=== PATIENT | female | born 1975 | race Caucasian/White ===

== ENCOUNTER 2021-06-08 12:15 | Outpatient (CLI) | payer OTHER, SELFPAY ==
--- NOTE | ~2021-06-08 | XR_ITS ---
EXAMINATION: XR chest 2V DATE: 06/08/2021 12:34 INDICATION: Left-sided chest pain TECHNIQUE: PA and lateral views of the chest are obtained. COMPARISON: None available FINDINGS: The lungs are free of acute opacities. There is no pleural effusion or pneumothorax. The ca rdiomediastinal silhouette is normal. The visualized bones and soft tissues are unremarkable. IMPRESSION: 1. No acute cardiopulmonary abnormality. Reviewed, dictated and finalized at location B.
== END 2021-06-08 12:16 | disposition home or self-care (01) ==
PROVIDERS: PCP Internal Medicine; Visit Provider Nurse Practitioner
DX: R07.89 Other chest pain (principal)
CPT/HCPCS: 71046

== ENCOUNTER 2025-04-25 00:41 | Day surgery (SDC) | payer OTHER, SELFPAY ==
--- OUTSIDE RECORDS SUMMARY | 2024-01-01 12:30 | XMS_ITS ---
Author Organization [facility] [place] ([address]) Address [address] [place] [address] Care Team Providers Care End Worker Name Role Phone Gabby Wilson Primary Care Provider Dr. 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 Botox Only (non-migraine). 2. Jaw Dystonia. * Medical History: Objective: * Vitals: Assessment: * Assessment: 1. I diopathic orofacial dystonia - G24.4 Plan: * Treatment: * Procedure Codes: 6 4615 CHEMODENERV MUSC MIGRAINE, J0585 BOTULINUM TOXIN TYPE A PER UNIT, J0585 BOTULINUM TOXIN TYPE A PER UNIT, Modifiers: JW * Follow Up: 3 Months (Reason: Toxin injection) * Billing Information: * Visit Code: * Procedure Codes: 57593 CHEMODENERV MUSC MIGRAINE. J0585 BOTULINUM TOXIN TYPE A PER UNIT. J0585 BOTULINUM TOXIN TYPE A PER UNIT. Modifiers: JW * Electronic signature of Dr. Arsenio Sutherland MD on 04/25/2025 at 12:44 AM CDT Sign off status: Pending * Provider: Erick Sutehrland MD Date: 0 01/01/2024 Generated for Lynnette dudley/Genie/Staci on: 0 04/25/2025 12:44 AM CDT
--- OUTSIDE RECORDS SUMMARY | 2024-01-15 12:30 | XMS_ITS ---
Author Organization [facility] [place] ([address]) Address [address] [place] [address] Care Team Providers Care Manager Hris Name Role Phone Gabby Wilson Primary Care Provider Dr. 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 Botox Non migraine. 2. Idiopathic orofacial dystonia. * HPI: * Headache: Plan 20 Units in B masseters and 20 Units in B temporal. * Medical History: Objective: * Vitals: Assessment: * Assessment: 1. I diopathic orofacial dystonia - G24.4 (Primary) Plan: * Treatment: * Procedure Codes: 6 4615 CHEMODENERV MUSC MIGRAINE, J0585 BOTULINUM TOXIN TYPE A PER UNIT, J0585 BOTULINUM TOXIN TYPE A PER UNIT, Modifiers: JW * Follow Up: 3 Months (Reason: Toxin injection) * Billing Information: * Visit Code: * Procedure Codes: 11447 CHEMODENERV MUSC MIGRAINE. J0585 BOTULINUM TOXIN TYPE A PER UNIT. J0585 BOTULINUM TOXIN TYPE A PER UNIT. Modifiers: JW * Electronic signature of Dr. Arsenio Sutherland MD on 04/25/2025 at 12:44 AM CDT Sign off status: Pending * Provider: Erick Sutherland MD Date: 0 01/15/2024 Generated for Lynnette dudley/Genie/eTransmitting on: 0 04/25/2025 12:44 AM CDT History and Physical Notes * HPI (History of Present Illness) Category Sub-Category Detail Notes Category Not es *Headache Plan 20 Units i n B masseters and 20 Units in B temporal
--- OUTSIDE RECORDS SUMMARY | 2024-01-17 16:30 | XMS_ITS ---
Author Organization [facility] [place] ([address]) Address [address] [place] [address] Care Team Providers Care Roll Shop Supervisor Name Role Phone Gabby Wilson Primary Care Provider UnavailDr. Arsenio Warren Unavailable [phone] ZZ[facility]Migration, Provider Unavailable Unavailab le Allergies Allergen (clinical drug ingredient) Drug/Non Drug Allergy documented on EMR Reaction Allergy Type Onset Date Status Penicillin Unknown Drug Allergy Active REASON FOR VISIT Multum To Medispan Conversion Encounter Medications Medication SIG (Take, Route, Frequency, Duration) Notes Start Date End Date Status Vitamin D3 *Please review a nd pick correct strength-formulation from Medispan options. If intended option is not shown, discontinue and re-order from Quick Search* Active Encounters Encounter Location Date Provider Diagnosis [address] [address] 01/17/2024 Provider [facility] Plan Of Treatment No Information Progress Notes * Chad MALHOTRAOB: 6 (49 yo F)Acc No.[id number]:01/17/2024 Patient: Humaira CHEN Provider: Jared Dockery :1975 A ge:48 Y S ex:Female Date:01/17/2024 Address:[address] [id number] Pcp:Gabby Wilson Subjective: * Chief Complaints: * 1 . Multum To Medispan Conversion Encounter. * Medical History: * Medications: T aking Vitamin D3 , Notes to Pharmacist: *Please review and pick correct strength-formulation from Medispan options. If intended option is not shown, discontinue and re-order from Quick Search* * Allergies: P enicillin. Objective: * Vitals: Assessment: Plan: * Treatment: * Billing Information: * Visit Code: * Procedure Codes: * Electronic signature of Ean LOBO-Migration on 04/25/2025 at 12:44 AM CDT Sign off status: Pending * Provider: Jared becerra Migration Date: 01/17/2024 Generated for Lynnette dudley/Genie/Marusmitting on: 04/25/2025 12:44 AM CDT
[2025-04-13 13:35] VITALS: BMI 24.8
--- OUTSIDE RECORDS SUMMARY | 2025-04-25 00:44 | XMS_ITS | Clinical Summary ---
Author Organization [facility] Address [address] [place] [address] Care Team Providers Care Feltmaker Name Role Phone Prakash Amador MD Unavailable + Jarret Johnson DO Primary Care Provider [phone] Allergies Active Allergy Reactions Criticality Noted Date Comments Penicillins Unknown As child Medications cholecalciferol 400 unit capsule Vitamin D3 Ac tive Active Problems Problem Noted Date Diagnosed Date Breast cancer screening, high risk patient 12/02 Acute streptococcal pharyngitis 03/03/2015 Overview (11/07/2016): Strep throat Surgical History Surgery Date Site/Laterality Comments APPENDECTOMY Appendectomy Medical History Medical History Date Comments Hodgkin lymphoma Hodgkins lympho ma Family History Medical History Relation Name Comments Multiple sclerosis Brother Multiple sclerosis; Coronary artery disease Father Gonzalez nary artery disease; Diabetes Father Diabetes mellit us; Hypertension Father Hypertension; Non-Hodgkin's Lymphoma Father Famil y history of non-Hodgkin's lymphoma - (Added by TW Conv) Osteoarthritis Father Osteoarthriti s; Osteoporosis Father Osteoporosis; Breast cancer Maternal Grandmother Relation Name Status Comments Brother Father Maternal Grandmother Social History Tobacco Use Types Packs/Day Years Used Date Smoking Tobacco: Never Tobacco Cessation:Counseling Given: Not Answered Alcohol Use Standard Drinks/Week Comments Yes 0 (1 standard drink = 0.6 oz pur e alcohol) Comments No Sex and Gender Information Value Date Recorded Sex Assigned at Not on file Legal Sex Female 12:13 PM CDT Gender Identity Not on file Sexual Orientation Not on file Obstetrics History Para Term AB IAB SAB Ectopic Multiple Livin g Live Births 4 3 3 Date Outcome GA Total Labor Labor/2nd/3rd Weight Sex Type Anes PTL Eileen A1 A5 Name Clin Term Term Term Last Filed Vital Signs Vital Sign Reading Time Taken Comments Blood Pressure 139/79 09/07/2024 3:24 PM [employer]LECT[employer] SAL[employer] SERVICE TECHNICIAN Pulse 96 09/07/2024 3:24 PM ELECT[employer]IC SALES [employer] SERVICE TECHNICIAN Temperature 36.6 C (97.8 F) 09/07/2024 3:24 PM ELECT[employer] SALES [employer] SERVICE TECHNICIAN Respiratory Rate 18 09/07/2024 3:24 PM ELECTRONIC SALES AND SERVICE TECHNICIAN Oxygen Saturation 97% 09/07/2024 3:24 PM ELECT[employer]IC SALES AND SERVICE TECHNICIAN Inhaled Oxygen Concentration - - Weight 62.6 kg (138 lb) 01/19/2025 1:43 PM CDT Height 157.5 cm (5' 2) 01/19/2025 1:43 PM CDT Body Mass Index 25.24 01/19/2025 1:43 PM CDT Plan of Treatment Health Maintenance Due Date Last Done Comments Cervical Cancer Screening 1975 Colon Cancer Screening-Colonoscopy 1975 Depression Screening 1975 Hepatitis C Screening 1975 DTaP/Tdap/Td Vaccine (1 - Tdap) 10/23/1986 Hepatitis B Screening 10/23/1993 Regular Well Visit/Exam 18-64 10/23/1993 Covid-19 Vaccine ( season) 2025 09/03/2020, 08/13/2020 Influenza Vaccine (#1) 2025 08/11/2012 Breast Cancer Screening-Mammogram 01/19/2026 01/19/2025, 05/24/2022, 04/16/2021, Additional history exists Pneumococcal vaccine <65 Aged Out No longer eligible based on patient's age to complete this topic Procedures Procedure Name Priority Date/Time Associated Diagnosis Comments SCREENING MAMMOGRAM BILATERAL W NICO Schedule Routine, Read Routine (OP Routine) 01/19/2025 1:51 PM CDT Screening mammogram, encounter for from Last 3 Months or Most Recently Relevant to Health Maintenance Results * Screening Mammogram Bilateral W Nico (01/19/2025 1:51 PM CDT) Anatomical Region Laterality Modality Breast Bilateral Mammography Impressions 01/20/2025 7:04 AM CDT Bilateral No evidence of malignancy in either breast. OVERALL BI-RADS FINAL ASSESSMENT: 1 - Negative RECOMMENDATION: Recommend bilateral annual screening mammography. Narrative 01/20/2025 7:04 AM CDT EXAMINATION: Screening Mammogram Bilateral W Nico: 01/19/2025 COMPARISON: Relevant prior studies available at the time of interpretation were reviewed. TECHNIQUE: Mammography was performed with 2D and digital breast tomosynthesis (DBT) images. CAD was utilized. BREAST PARENCHYMAL COMPOSITION: The breasts are heterogeneously dense, which may obscure small masses. FINDINGS: Bilateral There is no suspicious mass, calcification, or architectural distortion in either breast. us Self Screening Mammogram IMG MAMMO PROCEDURES Fi nal Result from Last 3 Months or Most Recently Relevant to Health Maintenance Insurance Epic! [facility] BL CHOICE [facility] [place]PO [place] [employer] ACCESS [place]OS [employer] [place] [address] [place] [address] [facility] HMO/PPO Address: [address] [address] [place] [address] [place] [address] [facility] HMO/PPO Address: [address] [address] Care Teams Feltmaker Relationship Specialty Start Date End Date Jarret Johnson DO PCP - General Internal Medicine 04/02/22 Prakash Amador MD 10/30/16
[2025-04-25 11:30] VITALS: BP 110/60; PULSE 100; RESP 18; TEMP 36.9; O2SAT 98
--- NOTE | 2025-04-25 11:39 | WPDANESEPPF ---
Anes - Initial Pre Proc Eval Procedure: Operation Date: 04/25/25 13:00 Proposed Procedures p Screening Colonoscopy - Fareed Shaikh MD Date/Time: 04/25/25 11:39 Surgeon: Fareed Shaikh MD Pre Op Diagnosis: Screening Patient Data Age: 49 Gender: F Height: 1.6 m Weight: 62.7 kg Last Vital Signs Temp 98.5 F 04/25/25 11:30 Pulse 100 04/25/25 11:30 Resp 18 04/25/25 11:30 BP 110/60 04/25/25 11:30 Pulse Ox 98 04/25/25 11:30 O2 Del Method Room Air 04/25/25 11:30 Allergies Allergy/AdvReac Type Severity Reaction Status Date / Time Penicillins Allergy Intermediate Rash Verified 04/13/25 13:35 Home Medications ?Medication ?Instructions ?Recorded ?Confirmed ?Type 7-Keto DHEA 25 mg BYMOUTH DAILY 10/18/24 04/25/25 History K-Force 2 cap BYMOUTH DAILY 10/18/24 04/25/25 History mecobalamin (vitamin B12) 10,000 1,000 mcg IM WEEKLY 10/18/24 04/25/25 History mcg solution for injection [id number]-8-rty-fish oil 1 cap PO DAILY 10/18/24 04/25/25 History pregnenolone 30 mg BYMOUTH DAILY 10/18/24 04/25/25 History Patient hx anesthesia problems: none Family hx anesthesia problems: none Results Review: All pre-operative results and documents have been reviewed as part of the pre-operative evaluation. [facility] Past Medical History Medical History COVID-19 Shingles Non-Hodgkin lymphoma Surgical History Surgical History H/O splenectomy History of laparotomy Hx of appendectomy Family History Family History Father Non-Hodgkin lymphoma Diabetes mellitus Hypertension Heart problem Mother Hypertension Sibling Hypertension Grandparent Breast cancer Diabetes mellitus Hypertension Social History Social History Smoking status: Never smoker Alcohol intake: current Drinks per week: 3 Substance use: never Substance use type: does not use Do You Feel Safe in your Home?: Yes Lack of Transportation: No Lack of Food: Never True Current Housing: I Have Housing Concerned About Future Housing: No Difficulty Paying Gas/Electric Bills: No Difficulty Paying for Meds: No Currently Unemployed: No Education: Master's Degree or Higher Difficulty w/ Childcare or Family Care: No Living arrangements: with family Spiritual care concerns: No Anes - Eval Final PreProcedure Day of Procedure 04/25/25 11:39 Patient weight: normal Lungs: normal air movement Airway: Mallampati scale class II Neurological: alert and oriented Last oral intake: >/= 8 hours ASA classification: II Emergent: no Anesthetic plan: proceed Anesthesia type and monitoring: general GIVS and standard monitoring Results Review: All pre-operative results and documents have been reviewed as part of the pre-operative evaluation. Hodgkins lymphoma, treated at 19, radiation and ex lap, stable and no recent treatments. Informed Consent: The patient's anesthetic plan and its attendant risks and benefits were discussed with the patient/family/POA. Questions were solicited and answers provided to the satisfaction of the patient/family/POA.
[2025-04-25] MEDS: LACTATED RINGERS 1,000 ML 150 ML IV CONT (11:42)
[2025-04-25 12:13] LABS: BEDSIDEPREGUCG Negative (Negative)
--- NOTE | 2025-04-25 12:41 | PM.HPGS ---
History of Present Illness History of Present Illness Consent: Risks, benefits, and alternatives have been discussed and questions answered. Patient agrees to proceed with procedure. Chief complaint: Screening Narrative: Humaira Malhotra is a 49 year old female here for first screening colonoscopy Review of Systems Review of Systems: All systems reviewed & are unremarkable except as noted in HPI and below PMFSH Past Medical History Medical History COVID-19 Shingles Non-Hodgkin lymphoma Surgical History Surgical History H/O splenectomy History of laparotomy Hx of appendectomy Family History Family History Father Non-Hodgkin lymphoma Diabetes mellitus Hypertension Heart problem Mother Hypertension Sibling Hypertension Grandparent Breast cancer Diabetes mellitus Hypertension Social History Social History Smoking status: Never smoker Alcohol intake: current Drinks per week: 3 Substance use: never Substance use type: does not use Do You Feel Safe in your Home?: Yes Lack of Transportation: No Lack of Food: Never True Current Housing: I Have Housing Concerned About Future Housing: No Difficulty Paying Gas/Electric Bills: No Difficulty Paying for Meds: No Currently Unemployed: No Education: Master's Degree or Higher Difficulty w/ Childcare or Family Care: No Living arrangements: with family Spiritual care concerns: No Meds Home Medications and Allergies Home Medications ?Medication ?Instructions ?Recorded ?Confirmed ?Type 7-Keto DHEA 25 mg BYMOUTH DAILY 10/18/24 04/25/25 History K-Force 2 cap BYMOUTH DAILY 10/18/24 04/25/25 History mecobalamin (vitamin B12) 10,000 1,000 mcg IM WEEKLY 10/18/24 04/25/25 History mcg solution for injection flngh-6-ryt-fish oil 1 cap PO DAILY 10/18/24 04/25/25 History pregnenolone 30 mg BYMOUTH DAILY 10/18/24 04/25/25 History Allergies Allergy/AdvReac Type Severity Reaction Status Date / Time Penicillins Allergy Intermediate Rash Verified 04/13/25 13:35 Vital Signs Vital Signs - 24 hr 04/25/25 11:30 Temperature 98.5 F Pulse Rate 100 Respiratory Rate 18 Blood Pressure 110/60 Pulse Oximetry 98 Oxygen Delivery Room Air Exam Const: General: comfortable and no acute distress HENMT: Face/Nose/Sinus: Normal nares present Eyes: General: appearance normal, both eyes and all related structures Neck: Neck: no JVD Resp: Auscultation: clear to auscultation bilaterally Cardio: Rate: regular rate Rhythm: regular rhythm GI: Inspection: non-distended GI Palp: Yes Soft to palpation Skin: General skin exam: normal color Neuro: Speech: normal speech Extrem: General: normal to inspection Psych: Mental Status: mental status grossly normal Assessment and Plan Assessment and plan (1) Screening for colon cancer: Code(s): Z12.11 - Encounter for screening for malignant neoplasm of colon Status: Acute Assessment and Plan: colonoscopy
--- NOTE | 2025-04-25 12:59 | S_PTH ---
PATIENT: Humaira Malhotra LOC: [facility] Bautista#:[id number] AGE/SX: 49/F ROOM: RE04/25/[address]: Fareed Shaikh MD : 1975 BED: DIS: 04/25/2025 SPEC #: [id number] RECD: 04/25/25 13:18 STATUS: GABE REQ #: [id number] MAURO: 04/25/25 12:[address]: Fareed Shaikh DEPT: [facility] Surgical RECD BY: Maty Golden ENTERED: 04/25/25 13:18 SP TYPE: Surgical OTHR DR: Jarret Johnson DO Tissues: A - Colon Polypectomy Procedures: Hematoxylin and Eosin Stain Gross and Microscopic Level 4
[2025-04-25 13:01] VITALS: BP 100/54; PULSE 92; RESP 16; O2SAT 100
[2025-04-25 13:11] VITALS: BP 101/58; PULSE 88; RESP 16; O2SAT 100
[2025-04-25 13:21] VITALS: BP 117/62; PULSE 88; RESP 16; O2SAT 100
== END 2025-04-25 13:29 | disposition home or self-care (01) ==
PROVIDERS: Anesthesiology; PCP Internal Medicine; Referring Provider Nurse Practitioner; Visit Provider Internal Medicine Gastroenterology
PROC: 0DJD8ZZ Inspection of Lower Intestinal Tract, Via Natural or Artificial Opening Endoscopic (ICD-10-PCS; CPT 45378; principal; 2025-04-25 13:00)
DX: Z12.11 Encounter for screening for malignant neoplasm of colon (principal); D12.3 Benign neoplasm of transverse colon; K63.5 Polyp of colon; K64.8 Other hemorrhoids; Z98.890 Other specified postprocedural states; Z85.72 Personal history of non-Hodgkin lymphomas; Z80.7 Family history of other malignant neoplasms of lymphoid, hematopoietic and related tissues; Z80.3 Family history of malignant neoplasm of breast; Z82.49 Family history of ischemic heart disease and other diseases of the circulatory system
CPT/HCPCS: 45385; 88305; J2003; J2704; J7120